=== PATIENT | male | born 1960 | race Caucasian/White ===

== ENCOUNTER → 2020-06-17 10:15 | Outpatient (BNVA) | payer OTHER, SELFPAY | PROVIDERS: Family Provider Nurse Practitioner Family; PCP Nurse Practitioner Family; Visit Provider Nurse Practitioner Family | DX: M79.672 Pain in left foot (principal); Z23 Encounter for immunization | CPT/HCPCS: 73630 ==

== ENCOUNTER → 2022-03-12 11:14 | Outpatient (BNVA) | payer OTHER, SELFPAY | PROVIDERS: Family Provider Nurse Practitioner Family; PCP Nurse Practitioner Family; Visit Provider Nurse Practitioner Family | DX: Z12.5 Encounter for screening for malignant neoplasm of prostate (principal); F17.200 Nicotine dependence, unspecified, uncomplicated; I10 Essential (primary) hypertension; Z13.220 Encounter for screening for lipoid disorders; M25.552 Pain in left hip; Z13.6 Encounter for screening for cardiovascular disorders; M54.30 Sciatica, unspecified side | CPT/HCPCS: 80053; 80061; 85025; G0103 ==

== ENCOUNTER 2022-03-13 10:22 | Outpatient (CLI) | payer OTHER, SELFPAY ==
--- NOTE | 2022-03-13 11:03 | XR_ITS ---
WS: [id number] XR sacroiliac jts m 3V [id number] REASON FOR EXAM: left hip pain sciatica FINDINGS: Sacroiliac joints are well defined. No significant sclerosis or erosion. No findings of bridging or fusion. XR/XR sacroiliac jts m 3V [id number] IMPRESSION: Normal sacroiliac joints.
--- NOTE | 2022-03-13 11:03 | XR_ITS ---
WS: [id number] XR chest 2V* [id number] REASON FOR EXAM: screening FINDINGS: Chest is unchanged compared to previous examination 04/10/2019. Minimal tortuosity the thoracic aorta. Heart size is normal. Calcified granulomatous disease in both hemithoraces. No acute pulmonary parenchymal or pleural abnormality. XR/XR chest 2V* [id number] IMPRESSION: No acute chest abnormality.
== END 2022-03-13 10:23 | disposition home or self-care (01) ==
PROVIDERS: PCP Nurse Practitioner Family; Visit Provider Nurse Practitioner Family
DX: M54.30 Sciatica, unspecified side (principal); M25.552 Pain in left hip
CPT/HCPCS: 71046; 72202

== ENCOUNTER 2024-02-22 06:58 | Outpatient (CLI) | payer OTHER, SELFPAY ==
--- NOTE | 2024-02-22 07:00 | USCV_ITS ---
Corwin Woodward Age: 63 Gender: M : 1960 Exam Date: 02/22/2024 07:08 Ordering Phys: Julianne Joseph ART EDUCATOR ART EDUCATOR Technologist: R Exam Location: [facility] [place] Indication: lt leg pain and swelling PROCEDURES: Venous duplex imaging was performed in only the left lower extremity. The following venous structures were evaluated: common femoral vein, profunda vein, proximal portion of the greater saphenous vein, superficial femoral vein, and the popliteal vein. In addition, the posterior tibial and peroneal trunk were evaluated. FINDINGS: Normal 2-D Doppler and augmentation and compressibility throughout the lower extremity venous structures. Additional imaging through the proximal calf veins also reveals no thrombus. Limited evaluation of the greater saphenous vein is patent with no thrombus. CONCLUSIONS No evidence of left lower extremity DVT. Jaciel Valadez MD (Electronically Signed) Final Date: 22 February 2024 08:51 S
[2024-02-22 08:08] LABS: Basophils # 0.1 10^3/uL (0.0-0.1); Basophils % 0.7 %; Eosinophils # 0.3 10^3/uL (0.0-0.8); Eosinophils % 3.3 %; Hematocrit 49.7 % (37-53); Lymphocytes # 1.9 10^3/uL (0.8-4.8); Lymphocytes % 24.9 %; Mean Corpuscular HGB Conc 35.2 g/dL (30-55); Mean Corpuscular Hemoglobin 33.8 pg (27-33); Mean Corpuscular Volume 95.9 fl (82-101); Mean Platelet Volume 9.4 fL (7.4-10.4); Monocytes # 0.8 10^3/uL (0.2-0.9); Monocytes % 10.8 %; Neutrophils # 4.56 10^3/uL (1.8-7.7); Neutrophils % 59.9 %; Nucleated Red Blood Cells % 0 %; Platelet Count 325 10^3/cmm (157-399); Red Blood Count 5.18 10^6/uL (3.85-5.65); Red Cell Distribution Width 12.9 % (12.1-15.1)
[2024-02-22 08:27] LABS: Estmated Average Glucose 114; Hemoglobin A1C 5.6 % (4.0-6.0)
[2024-02-22 08:55] LABS: Alanine Aminotransferase 14 U/L (0-41); Alkaline Phosphatase 74 U/L (40-130); Anion Gap 13.9 (5-19); Aspartate Amino Transferase 17 U/L (0-40); Blood Urea Nitrogen 5 mg/dL (8-23); Calcium 9.1 mg/dL (8.5-10.5); Carbon Dioxide 24 mmol/L (22-29); Chloride 98 mmol/L (98-107); Chol HDL Ratio 2.88 mg/dL (1.0-5.00); Cholesterol 170 mg/dL (0-200); Globulin 3.4 g/dL (1.3-4.6); Glomerular Filtration Rate 114.3 mL/min (90-130); Glucose 123 mg/dL (65-115); HDL Cholesterol 59 mg/dL (60-100); LDL Cholesterol Calculated 101 mg/dL (50-129); LDL HDL Ratio 1.71 RATIO (0.00-3.22); Magnesium 2.1 mg/dL (1.7-2.3); Osmolality Calculated 273 mOsm/kg (285-295); Potassium 3.9 mmol/L (3.5-5.1); Prostate Specific Antigen Scr 1.16 ng/mL (0-4); Sodium 132 mmol/L (136-145); Thyroid Stimulating Hormone 1.85 uIU/mL (0.27-4.20); Total Bilirubin 0.3 mg/dL (0.15-1.2); Total Protein 7.4 g/dL (6.6-8.7); Triglycerides 51 mg/dL (0-150); Vitamin B12 243 pg/mL (232-1245)
== END 2024-02-22 06:59 | disposition home or self-care (01) ==
LOC: RAD 06:59
PROVIDERS: PCP Nurse Practitioner Family; Visit Provider Nurse Practitioner Family
DX: M79.605 Pain in left leg (principal); I10 Essential (primary) hypertension; Z12.5 Encounter for screening for malignant neoplasm of prostate
CPT/HCPCS: 36415; 80053; 80061; 82607; 83036; 83735; 84443; 85025; 93971; G0103